=== PATIENT | male | born 1985 | race Caucasian/White ===

== ENCOUNTER 2016-04-20 13:16 | Emergency (ER) | payer SELFPAY ==
[2016-04-20] MEDS ORDERED: CLIN-73 PO (18:10)
== END 2016-04-20 13:44 | disposition left against medical advice (07) ==
LOC: E/R 13:16
DX: Z53.21 Procedure and treatment not carried out due to patient leaving prior to being seen by health care provider (principal)

== ENCOUNTER 2016-04-20 13:47 | Emergency (ER) | payer MEDICAID ==
[~2016-04-20] VITALS: Ht 177.8 cm; Wt 76.0 kg
[2016-04-20 13:53] VITALS: Ht 177.8 cm; Wt 76.0 kg
[2016-04-20] MEDS ORDERED: CLINDAMYCIN 300 MG INJ IM ONE (17:30)
[2016-04-20] MEDS ORDERED: CLIN-73 PO (18:10)
--- NOTE | 2016-04-20 18:26 | ERD ---
ER Documentation Chief Complaint Date/Time DATE: 04/20/16 TIME: 18:21 Chief Complaint Pt with multiple body ulcerations and erythema X 5 days, on bactrim HPI This is a 30-year-old male presents to the ER with multiple areas where he has picked his skin and that have become red swollen and with discharge. Patient is currently on IV drugs and uses heroin. Patient did get Bactrim however he states he is not getting any better. He denies any fevers or chills. 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 ROS 12 point review of systems was done, all negative except per HPI. Medications Home Meds Active Scripts Clindamycin Hcl* (Clindamycin Hcl*) 300 Mg Capsule, 300 MG PO TID for 10 Days, CAP Prov:SOLO REVELES Radha 04/20/16 PMhx/Soc History of Surgery: Yes (L wrist) Anesthesia Reaction: No Hx Neurological Disorder: No Hx Respiratory Disorders: No Hx Cardiac Disorders: No Hx Psychiatric Problems: No Hx Miscellaneous Medical Probl: Yes (cellulitis ) Hx Alcohol Use: Yes (hx) Hx Substance Use: Yes (meth and heroin) Hx Tobacco Use: Yes (1/2 pack) Smoking Status: Current every day smoker Physical Exam Vitals Vital Signs Date Time Temp Pulse Resp B/P Pulse Ox O2 Delivery O2 Flow Rate FiO2 04/20/16 13:53 98.4 105 18 160/104 97 Physical Exam GENERAL: The patient is well developed and appropriate for usual state of health , in no apparent distress. HEENT: Atraumatic. CHEST: Clear to auscultation bilaterally. There are no rales, wheezes or rhonchi. HEART: Regular rate and rhythm. No murmurs, clicks, rubs or gallops. NEURO: Alert and oriented. SKIN: patient has multiple areas of scabbing and places where he has picked his skin. Some areas have discharge and are warm to the touch. Results 24 hrs Current Medications Medications (Trade) Dose Ordered Sig/Johann Route PRN Reason Start Time Stop Time Status Last Admin Dose Admin Clindamycin Phosphate (Cleocin) 600 mg ONCE ONCE IM 04/20/16 17:30 04/20/16 17:31 DC 04/20/16 18:02 Procedures/MDM Differential Diagnosis: dermatitis, allergic urticaria, viral exanthem, insect bite, fungal infectio ,viral exanthem, hand foot mouth disease, , impetigo, cellulitis, abscess, hayley cecily syndrome, meningocemia, necrotizing fasciitis, myositis. Patient does appear to have cellulitis of some of the areas where he picks his skin. Patient is afebrile and well-appearing. I doubt systemic infection. I doubt sepsis. Patient was given clindamycin here in the ER without any complications will be sent home with clindamycin. Patient was urged to discontinue drug use. Patient needs to follow-up with his primary care doctor within 1-2 days return to ER sooner if symptoms worsen. My medical decision making was shared with the patient he understands and agrees with plan. Departure Diagnosis: Primary Impression: Cellulitis Condition: Stable Patient Instructions: Cellulitis Additional Instructions: Call your primary care doctor TOMORROW for an appointment during the next 1-2 days.See the doctor sooner or return here if your condition worsens before your appointment time. SOLO REVELES Apr 20, 2016 18:25
== END 2016-04-20 18:25 | disposition home or self-care (01) ==
LOC: FTE 13:47
DX: L03.818 Cellulitis of other sites (principal); F17.210 Nicotine dependence, cigarettes, uncomplicated
CPT/HCPCS: 96372; Z7502; Z7610

== ENCOUNTER 2016-04-29 22:00 | Emergency (ER) | payer MEDICAID ==
[~2016-04-29] VITALS: Wt 77.3 kg
[~2016-04-29 22:00] MED LIST: CLIN-73 PO
[2016-04-29] MEDS ORDERED: KETOROLAC 60 MG INJ IM STA (23:55)
--- NOTE | 2016-04-30 00:43 | ERD ---
ER Documentation Chief Complaint Date/Time DATE: 04/30/16 TIME: 00:42 Chief Complaint back pain s/p fall of ladder (up 4 ft), no ko HPI 30-year-old male presents here in emergency department for complaints of left lower back pain after falling from a ladder 4 feet high today. Patient described the pain as throbbing pain, 6/10 scale, is worse upon movement. Patient denies any incontinence. Patient denies any fever or chills. Patient denies any numbness or tingling. Patient did not take any medications to help with symptoms. ROS All systems reviewed and are negative except as per history of present illness. Medications Home Meds Active Scripts Clindamycin Hcl* (Clindamycin Hcl*) 300 Mg Capsule, 300 MG PO TID for 10 Days, CAP Prov:SOLO REVELES 04/20/16 Allergies Allergies: Coded Allergies: No Known Allergy (Unverified , 04/30/16) PMhx/Soc History of Surgery: Yes (L wrist) Anesthesia Reaction: No Hx Neurological Disorder: No Hx Respiratory Disorders: No Hx Cardiac Disorders: No Hx Psychiatric Problems: No Hx Miscellaneous Medical Probl: Yes (cellulitis ) Hx Alcohol Use: Yes (socially) Hx Substance Use: Yes (meth and heroin reports [id number]) Hx Tobacco Use: Yes (1/2 pack) Smoking Status: Current every day smoker FmHx Family History: No coronary disease, No diabetes, No other Physical Exam Vitals Vital Signs Date Time Temp Pulse Resp B/P Pulse Ox O2 Delivery O2 Flow Rate FiO2 04/29/16 22:10 98.0 110 20 147/97 98 Physical Exam GENERAL: The patient is well developed and appropriate for usual state of health, in no apparent distress. CHEST: Clear to auscultation bilaterally. There are no rales, wheezes or rhonchi. HEART: Regular rate and rhythm. No murmurs, clicks, rubs or gallops. No S3 or S4. ABDOMEN: Soft, nontender and nondistended. Good bowel sounds. No rebound or guarding. No gross peritonitis. No gross organomegaly or masses. No Barahona sign or McBurney point tenderness. BACK: No midline or flank tenderness. Muscle spasms noted in the left paraspinal aspect of the lumbar spine. EXTREMITIES: Equal pulses bilaterally. There is no peripheral clubbing, cyanosis or edema. No focal swelling or erythema. Full range of motion. Grossly neurovascularly intact. NEURO: Alert and oriented. Cranial nerves 2-12 intact. Motor strength in all 4 extremities with 5/5 strength. Sensation grossly intact. Normal speech and gait. SKIN: There is no apparent rash or petechia. The skin is warm and dry. HEMATOLOGIC AND LYMPHATIC: There is no evidence of excessive bruising or lymphedema. No gross cervical, axillary, or inguinal lymphadenopathy. Results 24 hrs Current Medications Medications (Trade) Dose Ordered Sig/Johann Route PRN Reason Start Time Stop Time Status Last Admin Dose Admin Ketorolac Tromethamine (Toradol) 60 mg ONCE STAT IM 04/29/16 23:55 04/29/16 23:56 DC I the patient, upon calling the patient in the waiting room for a CT scan and pain medications, he could not be found anymore, patient was contracted, cannot be reached, patient eloped. Prior to eloping, patient was able to walk with steady gait, does not appear to be having discomfort upon ambulation, upon physical examination, there is low suspicion for any fractures, by radiology exams were not done to confirm this since patient eloped.. Procedures/MDM Medical Decision Making: Patient's pain is most likely consistent with a contusion or a sprain. There is no suspicion for neurovascular compromise. Patient has intact sensation and circulation of the distal extremities, low suspicion for cauda equina, no incontinence. Upon physical examination, patient is able ambulate well, able to do full range of motion of the lower back without any restriction. Since patient eloped, CT scan of the lumbar spine was not done, patient was stable prior to eloping. Departure Diagnosis: Primary Impression: Back pain Back pain location: low back pain Chronicity: acute Back pain laterality: left Sciatica presence: without sciatica Qualified Code: M54.5 - Acute left- sided low back pain without sciatica Condition: Stable DIOGENES COLBERT NP Apr 30, 2016 00:43
== END 2016-04-30 03:22 | disposition left against medical advice (07) ==
LOC: FTE 22:00
DX: S39.92XA Unspecified injury of lower back, initial encounter (principal); F17.210 Nicotine dependence, cigarettes, uncomplicated; W11.XXXA Fall on and from ladder, initial encounter; Y92.9 Unspecified place or not applicable
CPT/HCPCS: J1885; Z7502

== ENCOUNTER 2017-01-22 18:39 | Emergency (ER) | payer SELFPAY ==
[~2017-01-22] VITALS: Ht 188 cm; Wt 79.0 kg
[2017-01-22 19:36] VITALS: Ht 188 cm; Wt 79.0 kg
== END 2017-01-23 00:19 | disposition left against medical advice (07) ==
LOC: E/R 18:39
DX: Z53.21 Procedure and treatment not carried out due to patient leaving prior to being seen by health care provider (principal)

== ENCOUNTER 2017-01-23 05:07 | Emergency (ER) | END 2017-01-24 08:29 ==